=== PATIENT | male | born 1970 | race Caucasian/White ===

== ENCOUNTER 2022-02-27 16:57 | Emergency (ER) | payer MEDICARE, OTHER ==
[~2022-02-27] VITALS: Ht 170.2 cm; Wt 65.8 kg
--- NOTE | 2022-02-27 18:00 | NUR ---
SEEN BY PA FOR EVAL
[2022-02-27 18:02] VITALS: BP 140/86
--- NOTE | 2022-02-27 18:20 | NUR ---
Patient discharged to home in stable condition. Written and verbal after care instructions given. Patient verbalizes understanding of instruction.
== END 2022-02-27 19:27 | disposition home or self-care (01) ==
LOC: ER 16:57
DX: Z48.02 Encounter for removal of sutures (principal); S01.91XD Laceration without foreign body of unspecified part of head, subsequent encounter; Z60.2 Problems related to living alone; W18.30XD Fall on same level, unspecified, subsequent encounter